=== PATIENT | female | born 1960 | race Caucasian/White ===

== ENCOUNTER 2016-07-05 20:05 | Inpatient (IN) | payer MEDICAID, OTHER ==
[~2016-07-05] VITALS: Ht 147.3 cm; Wt 64.9 kg
[2016-07-05 22:16] LABS: BLOOD UREA NITROGEN 22 mg/dL (7-18)
[2016-07-05 22:17] LABS: ASPARTATE AMINO TRANSFERASE 921 U/L (15-37)
[2016-07-05 22:36] LABS: IS PT STATUS REG ER OR PRE ER? YES
[2016-07-05] MEDS ORDERED: SODIUM CHLORIDE 0.9% 1,000ML IVBOLUS ONE (23:00)
[2016-07-05] MEDS ORDERED: SODIUM CHLORIDE FLUSH 10ML SYR IVF ONE (23:00)
[2016-07-06] MEDS ORDERED: OMNIPAQUE 350 MG/ML, 100ML BOTTLE ONE (01:08)
[2016-07-06] MEDS: NS + 20MEQ KCL 1,000 ML IV SCH ×2 (01:12→12:13)
[2016-07-06] MEDS ORDERED: morphine SULFATE 10 MG/ML, 1ML IVPush PRN (01:30)
[2016-07-06] MEDS ORDERED: CEFOTETAN PMX 1GM/50ML 50 ML IV ONE (01:30)
[2016-07-06] MEDS ORDERED: POLYETHYLENE GLYCOL 17 GM PACKET PO PRN (01:30)
[2016-07-06] MEDS ORDERED: ONDANSETRON 2MG/ML, 2ML IVPush PRN (01:30)
[2016-07-06] MEDS ORDERED: CEFOTETAN PMX 2GM/50ML 50 ML IV SCH (01:30)
[2016-07-06] MEDS ORDERED: DOCUSATE 100 MG CAPSULE PO PRN (01:30)
[2016-07-06] MEDS ORDERED: OXYcodone IR 5MG TABLET PO PRN (01:30)
[2016-07-06] MEDS ORDERED: CEFOTETAN PMX 1GM/50ML 50 ML ONE (01:38)
[2016-07-06] MEDS ORDERED: NS + 20MEQ KCL 1,000 ML IV ONE (01:38)
[2016-07-06 02:51] VITALS: BP 129/92
[2016-07-06] MEDS: METRONIDAZOLE PMX 500MG/100ML 100 ML IV SCH ×2 (03:13→09:59)
[2016-07-06 07:20] VITALS: BP 112/66
[2016-07-06] MEDS ORDERED: SENNA/DOCUSATE TABLET PO SCH (09:00)
[2016-07-06] MEDS ORDERED: ETOMIDATE 40 MG/20 ML ONE (12:00)
[2016-07-06] MEDS ORDERED: MIDAZOLAM 1 MG/ML, 5ML ONE (12:00)
[2016-07-06] MEDS ORDERED: CEFTRIAXONE PMX 1GM/50ML 50 ML IV SCH (13:30)
[2016-07-06 14:07] VITALS: BP 84/53
[2016-07-06 14:47] LABS: BLOOD UREA NITROGEN 27 mg/dL (7-18)
[2016-07-06 14:55] LABS: ASPARTATE AMINO TRANSFERASE 1511 U/L (15-37); IS PT STATUS REG ER OR PRE ER? NO
[2016-07-06 14:56] LABS: ABG COLLECTION SITE LEFT BRACHIAL
[2016-07-06] MEDS ORDERED: DEXTROSE 50%, 50ML VIAL ONE (15:15)
[2016-07-06] MEDS ORDERED: DEXTROSE 50%, 50ML SYRINGE IVPush ONE (15:30)
[2016-07-06] MEDS ORDERED: SODIUM BICARB 8.4%, 50ML SYRINGE IVPush STA (15:34)
[2016-07-06] MEDS ORDERED: SODIUM BICARBONATE 1 MEQ/ML, 50ML VIAL IVPush ONE (15:52)
[2016-07-06] MEDS ORDERED: LORazepam 2 MG/ML, 1ML ONE (16:06)
[2016-07-06] MEDS ORDERED: LORazepam 2 MG/ML, 1ML IVPush ONE (16:30)
[2016-07-06] MEDS ORDERED: PROPOFOL 100 ML IV ONE (17:19)
[2016-07-06] MEDS ORDERED: PROPOFOL 100 ML IV PRN (17:25)
[2016-07-06] MEDS: NOREPINEPHRINE 4 MG in SODIUM CHLORIDE 0.9% 246 ML IV PRN ×3 (17:30→22:22)
[2016-07-06] MEDS ORDERED: NOREPINEPHRINE 1 MG/ML, 4ML ONE (17:30)
[2016-07-06] MEDS: ALBUTEROL/IPRATROPIUM 2.5MG/0.5MG, 3 ML INLINE SCH ×2 (17:30→21:35)
[2016-07-06] MEDS ORDERED: LACTULOSE 20 GM/30 ML UDC NG PRN (17:30)
[2016-07-06] MEDS ORDERED: LIDOCAINE-MPF 1%, 2ML ENDO PRN (17:30)
[2016-07-06] MEDS ORDERED: VANCOMYCIN PER PHARMACY MC PRN (17:30)
[2016-07-06] MEDS ORDERED: SENNA/DOCUSATE TABLET NG PRN (17:30)
[2016-07-06] MEDS ORDERED: SODIUM BICARBONATE 8.4% 150 MEQ in DEXTROSE 5% 1,000 ML IV SCH (17:30)
[2016-07-06] MEDS ORDERED: PHARMACY MAY ADJ FOR RENAL FX MC SCH (17:30)
[2016-07-06] MEDS ORDERED: ACETAMINOPHEN 650 MG/20.3 ML UDC NG PRN (17:30)
[2016-07-06 17:35] LABS: BLOOD UREA NITROGEN 29 mg/dL (7-18)
[2016-07-06 17:48] LABS: ASPARTATE AMINO TRANSFERASE 1572 U/L (15-37)
[2016-07-06] MEDS ORDERED: MEROPENEM 1 GM in SODIUM CHLORIDE 0.9% 100 ML IV SCH (18:00)
[2016-07-06] MEDS ORDERED: PHARMACOKINETIC MONITORING MC PRN (18:00)
[2016-07-06] MEDS ORDERED: VANCOMYCIN 1,100 MG in SODIUM CHLORIDE 0.9% 250 ML IV SCH (18:00)
[2016-07-06] MEDS ORDERED: PHARMACOKINETIC CONSULTATION MC ONE (18:00)
[2016-07-06] MEDS ORDERED: VANCOMYCIN 1,300 MG in SODIUM CHLORIDE 0.9% 250 ML IV SCH (18:00)
[2016-07-06 18:01] LABS: IS PT STATUS REG ER OR PRE ER? NO
[2016-07-06 19:47] LABS: HIV 1&2 ANTIBODY SCREEN Nonreactive (Nonreactive); HIV-1 p24 ANTIGEN Nonreactive (Nonreactive)
[2016-07-06 20:05] LABS: DIFF TOTAL CELLS COUNTED 100 CELL DIFF
[2016-07-06 20:06] LABS: VERIFY COUNTS? YES
[2016-07-06 20:07] LABS: ANISOCYTOSIS 1+
[2016-07-06 20:08] LABS: POLYCHROMASIA 1+
[2016-07-06] MEDS ORDERED: MORPHINE SULFATE 4 MG/ML, 1ML IVPush PRN ×2 (23:30)
[2016-07-07] MEDS: NOREPINEPHRINE 4 MG in SODIUM CHLORIDE 0.9% 246 ML IV PRN (00:09)
== END 2016-07-07 05:40 | disposition expired | DRG 871 ==
LOC: ED 21:40 → SUATTDRO 07-06 00:53 → EDIP 07-06 01:12 → 3NW 07-06 02:15 → CCU 07-06 14:46
PROVIDERS: ADMIT Family Medicine; ATTEND Internal Medicine
PROC: 0BH17EZ Insertion of Endotracheal Airway into Trachea, Via Natural or Artificial Opening (ICD-10-PCS; principal; 2016-07-06)
PROC: 5A1935Z Respiratory Ventilation, Less than 24 Consecutive Hours (ICD-10-PCS; 2016-07-06)
PROC: 02HV33Z Insertion of Infusion Device into Superior Vena Cava, Percutaneous Approach (ICD-10-PCS; 2016-07-06)
PROC: B548ZZA Ultrasonography of Superior Vena Cava, Guidance (ICD-10-PCS; 2016-07-06)
DX: A41.9 Sepsis, unspecified organism (principal); I50.21 Acute systolic (congestive) heart failure; J96.01 Acute respiratory failure with hypoxia; K72.00 Acute and subacute hepatic failure without coma; K83.1 Obstruction of bile duct; N17.0 Acute kidney failure with tubular necrosis; R65.21 Severe sepsis with septic shock; E43 Unspecified severe protein-calorie malnutrition; D68.4 Acquired coagulation factor deficiency; K81.0 Acute cholecystitis; N39.0 Urinary tract infection, site not specified; I42.9 Cardiomyopathy, unspecified; Z99.11 Dependence on respirator [ventilator] status; E86.0 Dehydration; F15.10 Other stimulant abuse, uncomplicated; F31.9 Bipolar disorder, unspecified; H93.19 Tinnitus, unspecified ear; I11.0 Hypertensive heart disease with heart failure; Z66 Do not resuscitate; Z87.891 Personal history of nicotine dependence; Z91.19 Patient's noncompliance with other medical treatment and regimen; Z68.29 Body mass index [BMI] 29.0-29.9, adult
CPT/HCPCS: 36415; 36569; 36600; 70450; 71010; 71275; 76937; 77001; 80053; 81001; 82803; 82962; 83605; 83690; 83735; 83880; 84100; 84145; 84478; 84484; 85025; 85610; 86703; 86704; 86706; 86708; 86803; 87040; 87070; 87081; 87086; 87205; 87340; 87899; 93005; 93306; 94002; 94003; 94640; 96361; 96374; J0696; J2185; J2250; J2405; J3370; J3480; J7070; J7620; Q9967; C1751; G0435; J2060; J7030; J7050; S0074